=== PATIENT | female | born 1995 ===

== ENCOUNTER 2022-02-19 21:03 | Emergency (ER) | payer MEDICAID ==
[~2022-02-19] VITALS: Ht 154.9 cm; Wt 77.6 kg
[2022-02-19 21:03] VITALS: BP 121/70
--- NOTE | 2022-02-19 21:25 | NUR ---
PT BROUGHT TO CHAIR VIA [facility]
[2022-02-19 22:25] LABS: BASOPHILS # (AUTO) 0.1 K/uL (0.00-0.22); BASOPHILS % (AUTO) 0.5 % (0.0-2.0); EOSINOPHILS # (AUTO) 0.2 K/uL (0-0.4); EOSINOPHILS % (AUTO) 1.2 % (0.0-4.0); HEMATOCRIT 36.4 % (36-48); HEMOGLOBIN 12.3 g/dL (12.0-16.0); LYMPHOCYTES # (AUTO) 2.6 K/uL (2.5-16.5); LYMPHOCYTES % (AUTO) 19.5 % (20.5-51.1); MEAN CORPUSCULAR HEMOGLOBIN 31 pg (27-31); MEAN CORPUSCULAR HGB CONC 34 g/dL (33-37); MEAN CORPUSCULAR VOLUME 91.4 fL (80-94); MONOCYTES # (AUTO) 0.7 K/uL (0.8-1.0); MONOCYTES % (AUTO) 5.6 % (1.7-9.3); NEUTROPHILS # (AUTO) 9.6 K/uL (1.8-7.7); NEUTROPHILS % (AUTO) 73.2 % (42.2-75.2); PLATELET COUNT (AUTO) 305 K/uL (140-450); RED BLOOD CELL COUNT(AUTO) 3.99 MIL/uL (4.20-5.40); RED CELL DISTRIBUTION WIDTH 12.4 % (11.6-13.7); WHITE BLOOD COUNT (AUTO) 13.1 K/uL (4.8-10.8)
--- NOTE | 2022-02-19 22:40 | NUR ---
PT IN GOWN IN BED 6. 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
[2022-02-19 22:47] LABS: BARBITURATE, URINE NEGATIVE ng/ml (NEG <=200); BENZODIAZEPINE, URINE NEGATIVE ng/mL (NEG <=200); CANNABINOID, URINE POSITIVE ng/mL (NEG <=50); COCAINE, URINE NEGATIVE ng/mL (NEG <=300); OPIATE, URINE POSITIVE ng/mL (NEG <=2000); PHENCYCLIDINE SCREEN,URINE NEGATIVE ng/mL (NEG <=25)
--- NOTE | 2022-02-19 22:53 | NUR ---
[employer] CONTACTED
--- NOTE | 2022-02-19 23:01 | NUR ---
26YR OLD FEMALE BIB EMS C/O SI . PT ADMITS TO INGESTION OF 10 TYLENOL WITH CODIENE. INGESTION BETWEEN [phone]. 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 A&OX4. SKIN WARM AND DRY . RESP EVEN AND UNLABORED. PT STATES HAVING SOME ABD PAIN 3/10. NO VOMITING OR NAUSEA. DENIES CP OR SOB. PT IS ON A 5150 BY MICKI MURRELL. [employer] CONTACTED. PT BELONGINGS BAGGED AND TAGGED SENT TO SECURITY. PT ADVISED ON 5150 AND RETRICATIONS. NKDA NO MED HX
[2022-02-19 23:04] LABS: ACETAMINOPHEN 14.7 ug/ml (10-30); ALBUMIN 3.4 g/dL (3.4-5.0); ANION GAP 12.6 (8-16); ASPARTATE AMINOTRANSFERASE 19 U/L (15-37); CARBON DIOXIDE 27.5 mmol/L (21-32); CHLORIDE 103 mmol/L (98-107); CREATININE 0.6 mg/dL (0.6-1.3); GFR ARICAN-AMERICAN 154 mL/min (>90); GLUCOSE 91 mg/dL (74-106); POTASSIUM 3.1 mmol/L (3.5-5.1); SODIUM SERUM 140 mmol/L (136-145); TOTAL BILIRUBIN 0.5 mg/dL (0.0-1.0); UREA NITROGEN, BLOOD 10 mg/dL (7-18)
--- NOTE | 2022-02-19 23:04 | NUR ---
PATINET VOMITING . ABD PAIN STILL 06/28
[2022-02-19 23:05] LABS: SALICYLATE < 2.8 mg/dL (2.8-20.0)
--- NOTE | 2022-02-20 00:57 | NUR ---
PT IS RESTING IN BED. LABS AND URINE BACK. WILL FOLLOW UP WITH [employer]
--- NOTE | 2022-02-20 01:52 | NUR ---
SPOKE WITH [employer]. NO REPEAT BLOOD LEVELS NEEDED.
--- NOTE | 2022-02-20 02:48 | NUR ---
PATIENT AMBULATED TO AND BACK TO BED 6
--- NOTE | 2022-02-20 06:14 | NUR ---
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
--- NOTE | 2022-02-20 07:20 | NUR ---
Report recieved from ELIJAH James for transfer of care.
--- NOTE | 2022-02-20 08:04 | NUR ---
Packet faxed to: [facility]
--- NOTE | 2022-02-20 08:15 | NUR ---
Patient was offered breakfast tray. Patient is sitting up on bed, eating breakfast.
--- NOTE | 2022-02-20 09:13 | NUR ---
Spoke to Christo at [facility] to update on patients condition. Pending admission to facility.
--- NOTE | 2022-02-20 10:48 | NUR ---
Spoke with Marline at [facility] to give report and to set up transport for patient.
--- NOTE | 2022-02-20 12:07 | NUR ---
Patient ambulated to restroom.
--- NOTE | 2022-02-20 12:20 | NUR ---
Patient to be transferred to [facility]. Is being transferred due to Higher Level of Care. Receiving facility has accepting physician and available space. ER physician has signed transfer form. Patient or responsible constitution party has agreed to transfer and signed form. Patient belongings inventoried and will be sent with patient. Copy of nursing notes, lab reports, EKG, Physicians Orders and X-rays to be sent with patient. Report called to Marline at receiving facility. [facility] ambulance service has been called for transfer.
[2022-02-20 12:22] VITALS: BP 147/83
--- NOTE | 2022-02-20 12:22 | NUR ---
[facility] at bedside for transport.
== END 2022-02-20 14:29 | disposition psychiatric hospital, planned readmission (93) ==
LOC: MED 21:03
DX: R45.851 Suicidal ideations (principal); Z20.822 Contact with and (suspected) exposure to COVID-19; T39.1X2A Poisoning by 4-Aminophenol derivatives, intentional self-harm, initial encounter; Y92.89 Other specified places as the place of occurrence of the external cause
CPT/HCPCS: 36415; 80053; 80305; 84703; 85025; 87426; 87635; 99285; C9803; G0480; G0482

== ENCOUNTER 2022-08-09 19:22 | Emergency (ER) | payer MEDICAID ==
[~2022-08-09] VITALS: Ht 154.9 cm; Wt 74.8 kg
[2022-08-09 19:27] VITALS: BP 139/67
--- NOTE | 2022-08-09 20:07 | NUR ---
Dr. Bernard examining patient.
--- NOTE | 2022-08-09 21:08 | NUR ---
PT TO BED 04
--- NOTE | 2022-08-09 21:16 | NUR ---
RECEIVED IN BED 4 WITH C/O lower abdominal pain x 2 and half months, Patient reported, had lower abdominal pain for 2 months. LMP July 02, 2022. Patient tested positive for . No vaginal bleeding . Sx: Appendectomy, Gall bladder removal
[2022-08-09 21:51] LABS: BASOPHILS % (AUTO) 0.2 % (0.0-2.0); EOSINOPHILS # (AUTO) 0.1 K/uL (0-0.4); EOSINOPHILS % (AUTO) 0.7 % (0.0-4.0); HEMATOCRIT 34.8 % (36-48); HEMOGLOBIN 11.8 g/dL (12.0-16.0); LYMPHOCYTES # (AUTO) 2.8 K/uL (2.5-16.5); LYMPHOCYTES % (AUTO) 22.4 % (20.5-51.1); MEAN CORPUSCULAR HEMOGLOBIN 31 pg (27-31); MEAN CORPUSCULAR HGB CONC 34 g/dL (33-37); MEAN CORPUSCULAR VOLUME 91.3 fL (80-94); MONOCYTES # (AUTO) 0.7 K/uL (0.8-1.0); MONOCYTES % (AUTO) 5.9 % (1.7-9.3); NEUTROPHILS % (AUTO) 70.8 % (42.2-75.2); PLATELET COUNT (AUTO) 228 K/uL (140-450); RED BLOOD CELL COUNT(AUTO) 3.82 MIL/uL (4.20-5.40); RED CELL DISTRIBUTION WIDTH 12.7 % (11.6-13.7); WHITE BLOOD COUNT (AUTO) 12.7 K/uL (4.8-10.8)
[2022-08-09 22:07] LABS: ALBUMIN 3.6 g/dL (3.4-5.0); CARBON DIOXIDE 26.5 mmol/L (21-32); CREATININE 0.7 mg/dL (0.6-1.3); POTASSIUM 3.5 mmol/L (3.5-5.1); TOTAL BILIRUBIN 0.6 mg/dL (0.0-1.0)
[2022-08-09 22:19] LABS: APPEARANCE,URINE CLEAR (CLEAR); BILIRUBIN,URINE NEGATIVE (NEGATIVE); BLOOD, URINE NEGATIVE (NEGATIVE); COLOR,URINE YELLOW (YELLOW); LEUKOCYTE ESTERASE ,URINE TRACE (NEGATIVE); NITRITE, URINE NEGATIVE (NEGATIVE); UGLUCOSE NEGATIVE (NEGATIVE)
[2022-08-09 22:37] LABS: RBC,URINE 0-5 /HPF (0-5)
[2022-08-09] MEDS ORDERED: ACET-10509 PO (22:39)
[2022-08-09 22:58] VITALS: BP 139/67
== END 2022-08-09 22:58 | disposition home or self-care (01) ==
LOC: MED 19:22
DX: O26.891 Other specified pregnancy related conditions, first trimester (principal); Z3A.01 Less than 8 weeks gestation of pregnancy; Z79.899 Other long term (current) drug therapy
CPT/HCPCS: 36415; 76817; 80053; 81001; 81025; 85025; 86900; 86901; 87086; 99284; Q0092